=== PATIENT | female | born 1995 | race Caucasian/White ===

== ENCOUNTER → 2019-02-03 | Outpatient (CLI) | payer BC | LOC: RAD 16:27 | DX: S89.91XA Unspecified injury of right lower leg, initial encounter (principal) ==

== ENCOUNTER → 2019-02-17 | Outpatient (CLI) | payer BC | LOC: RAD 09:12 | DX: D16.22 Benign neoplasm of long bones of left lower limb (principal); M25.561 Pain in right knee ==

== ENCOUNTER 2019-04-28 14:00 | Outpatient (RCR) | payer BC | END 2019-04-28 14:30 | LOC: PT 14:00 | DX: M22.2X1 Patellofemoral disorders, right knee (principal) ==

== ENCOUNTER → 2023-09-08 | Outpatient (CLI) | payer OTHER | LOC: RAD 15:51 | DX: R05.3 Chronic cough (principal) ==